=== PATIENT | male | born 1975 | race Caucasian/White ===

== ENCOUNTER 2017-02-04 16:56 | Emergency (ER) | payer OTHER ==
[~2017-02-04] VITALS: Ht 185.4 cm; Wt 95.3 kg
[2017-02-04 17:00] VITALS: BP 130/69
--- NOTE | 2017-02-04 19:37 | NUR ---
PATIENT LEFT WITHOUT BEING SEEN BY DR. LANDRY. NO FURTHER CARE PROVIDED FOR PATIENT.
== END 2017-02-04 19:57 | disposition left against medical advice (07) ==
LOC: MED 16:56
DX: Z53.21 Procedure and treatment not carried out due to patient leaving prior to being seen by health care provider (principal)